=== PATIENT | female | born 1980 | race African-American/Black ===

== ENCOUNTER 2016-10-02 13:28 | Emergency (ER) | payer SELFPAY ==
[~2016-10-02] VITALS: Ht 172.7 cm; Wt 100.0 kg
[~2016-10-02 13:28] MED LIST: AMLO2.5T45 PO; BENA20TA3 PO; HYDR25TA PO; IBUP-1509
[2016-10-02 13:34] VITALS: BP 134/79
== END 2016-10-02 18:05 | disposition left against medical advice (07) ==
LOC: ER 17:57
DX: R51 Headache (principal); Z53.21 Procedure and treatment not carried out due to patient leaving prior to being seen by health care provider

== ENCOUNTER 2016-10-03 08:45 | Emergency (ER) | payer SELFPAY ==
[~2016-10-03] VITALS: Ht 172.7 cm; Wt 99.0 kg
[2016-10-03 10:46] LABS: CLARITY URINE CLEAR (CLEAR); COLOR URINE YELLOW (YELLOW); GLUCOSE URINE NEGATIVE (NEGATIVE); KETONES URINE NEGATIVE (NEGATIVE); LEUKOCYTE ESTERASE URINE TRACE (NEGATIVE); NITRITE URINE NEGATIVE (NEGATIVE); OCCULT BLOOD URINE 2+ (NEGATIVE); PH URINE 6.5 (4.5-8.0); PROTEIN URINE NEGATIVE (NEGATIVE); SPECIFIC GRAVITY URINE 1.003 (1.005-1.030); UROBILINOGEN URINE 0.2 E.U./dL (0.2-1.0)
[2016-10-03 11:13] LABS: BACTERIA URINE 2+; WBC URINE 0-2 /hpf (0-2)
[2016-10-03 11:14] LABS: SQUAMOUS EPITHELIAL CELL URINE FEW /lpf (RARE/1+)
[2016-10-03] MEDS ORDERED: METRONIDAZOLE 500MG TABLET PO SCH (11:45)
[2016-10-03 12:50] VITALS: BP 131/80
[2016-10-05 05:15] LABS: CHLAMYDIA TRACHOMATIS NAA Negative (Negative); NEISSERIA GONORRHOEAE NAA Negative (Negative)
== END 2016-10-03 12:50 | disposition home or self-care (01) ==
LOC: ER 09:42
DX: A59.01 Trichomonal vulvovaginitis (principal); J45.909 Unspecified asthma, uncomplicated; I10 Essential (primary) hypertension; Z79.1 Long term (current) use of non-steroidal anti-inflammatories (NSAID); Z79.899 Other long term (current) drug therapy; Z86.718 Personal history of other venous thrombosis and embolism
CPT/HCPCS: 81001; 81025; 87210; 87491; 87591; 99284; Z7610

== ENCOUNTER 2016-10-09 10:33 | Emergency (ER) | payer SELFPAY ==
[~2016-10-09] VITALS: Ht 172.7 cm; Wt 100.0 kg
[2016-10-09 10:43] VITALS: BP 133/87
== END 2016-10-09 15:21 | disposition left against medical advice (07) ==
LOC: ER 14:42
DX: Z00.00 Encounter for general adult medical examination without abnormal findings (principal); Z53.21 Procedure and treatment not carried out due to patient leaving prior to being seen by health care provider

== ENCOUNTER 2017-01-10 10:29 | Emergency (ER) | payer MEDICAID ==
[~2017-01-10] VITALS: Ht 172.7 cm; Wt 98.0 kg
[~2017-01-10 10:29] MED LIST changes: -IBUP-1509; +IBUP-2048
[2017-01-10] MEDS ORDERED: SODIUM CHLORIDE 0.9% 1,000 ML IV ONE (10:56)
[2017-01-10] MEDS ORDERED: MECLIZINE 25MG TABLET PO ONE (11:30)
[2017-01-10 11:45] LABS: BASOPHILS % 1.1 % (0.0-2.0); EOSINOPHILS % 2.7 % (0.0-5.0); HEMOGLOBIN. 11.4 g/dL (12.0-16.0); LYMPHOCYTES % 39.5 % (20.0-50.0); MEAN CORPUSCULAR HEMOGLOBIN 27.7 pg (28.0-32.0); MEAN CORPUSCULAR VOLUME 85.4 fL (81.0-99.0); MEAN PLATELET VOLUME 7.7 fl (7.4-10.4); MONOCYTES % 6.8 % (2.0-8.0); NEUTROPHILS % 49.9 % (40.0-76.0); PLATELET 374 x1000/uL (130-400); RED BLOOD CELL COUNT 4.09 mill/uL (4.2-5.4); RED CELL DISTRIBUTION WIDTH 16.2 % (11.6-14.6)
[2017-01-10 11:51] LABS: PARTIAL THROMBOPLASTIN TIME 25.6 sec (23.4-31.0); PROTHROMBIN TIME 10.7 sec (9.4-11.6)
[2017-01-10 11:52] LABS: CARBON DIOXIDE 28 mEq/L (21-32); CHLORIDE 107 mEq/L (98-107)
[2017-01-10 11:53] LABS: HCG SCREEN NEGATIVE
[2017-01-10 11:59] LABS: TROPONIN I < 0.02 ng/mL (0.00-0.04)
[2017-01-10 12:00] LABS: CREATINE KINASE MB FRACTION < 0.5 ng/mL (0.5-3.6)
[2017-01-10 14:41] VITALS: BP 122/76
== END 2017-01-10 14:42 | disposition home or self-care (01) ==
LOC: ER 11:20
DX: R42 Dizziness and giddiness (principal); I10 Essential (primary) hypertension; J45.909 Unspecified asthma, uncomplicated; Z86.718 Personal history of other venous thrombosis and embolism
CPT/HCPCS: 36415; 70450; 71010; 80053; 82553; 83735; 83880; 84484; 84703; 85025; 85610; 85730; 93005; 96360; 99285; J7030; Z7610; J8597